=== PATIENT | female | born 1950 | race African-American/Black ===

== ENCOUNTER 2017-08-30 18:20 | Emergency (ER) | payer MEDICARE ==
[2017-08-30] MEDS ORDERED: METHYLPREDNISOLONE INJ 125 MG/2 ML SDV IV ONE (18:32)
[2017-08-30] MEDS ORDERED: EPINEPHRINE INJ/PF 1 MG/1 ML AMPULE SUBCUT PRN (18:32)
[2017-08-30] MEDS ORDERED: FAMOTIDINE INJ/PF 20 MG/2 ML SDV IV ONE (18:33)
[2017-08-30] MEDS ORDERED: DIPHENHYDRAMINE HCL 50 MG/ML VIAL IV ONE (18:33)
--- NOTE | 2017-08-30 18:33 | ER Document Report ---
ED Medical Screen (RME) - General Chief Complaint: Allergic Reaction Stated Complaint: RASH Time Seen by Provider: 08/30/17 18:31 Mode of Arrival: Ambulatory Information source: Patient Notes: 67 yo female not on JASON's ate fish 3 hours ago, 30 minutes ago started itching badly and get throat swelling. Pulse 104. Lungs clear. Angioedema soft palate left side. Will go to Trauma 2. Meds ordered. TRAVEL OUTSIDE OF THE [place] IN LAST 30 DAYS: No - Related Data Allergies/Adverse Reactions: lisinopril [Lisinopril] Allergy (Verified 08/30/17 18:23) Past Medical History - Past Medical History Cardiac Medical History: Reports: Hx Hypertension Past Surgical History: Reports: Hx Hysterectomy - Immunizations Hx Diphtheria, Pertussis, Tetanus Vaccination: Yes Physical Exam - Vital signs Vitals: Temp Pulse Resp BP Pulse Ox 97.4 F 104 H 18 117/93 H 97 08/30/17 18:27 08/30/17 18:27 08/30/17 18:27 08/30/17 18:27 08/30/17 18:27 Course - Vital Signs Vital signs: Temp Pulse Resp BP Pulse Ox 97.4 F 104 H 18 117/93 H 97 08/30/17 18:27 08/30/17 18:27 08/30/17 18:27 08/30/17 18:27 08/30/17 18:27
[2017-08-30] MEDS ORDERED: DIPHENHYDRAMINE HCL 50 MG/ML VIAL ONE (18:34)
[2017-08-30] MEDS ORDERED: EPINEPHRINE INJ/PF 1 MG/1 ML AMPULE ONE (18:35)
[2017-08-30] MEDS ORDERED: METHYLPREDNISOLONE INJ 125 MG/2 ML SDV ONE (18:35)
[2017-08-30] MEDS ORDERED: MAGNESIUM SULFATE/D5W 1 GM/100 ML RTUPB IV ONE ×2 (18:52→19:02)
[2017-08-30] MEDS ORDERED: EPINEPHRINE INJ/PF 1 MG/1 ML AMPULE IM ONE (19:02)
--- NOTE | 2017-08-30 19:06 | ER Document Report ---
ED General - General Chief Complaint: Allergic Reaction Stated Complaint: RASH Time Seen by Provider: 08/30/17 18:31 Mode of Arrival: Ambulatory Information source: Patient Notes: This is a 67-year-old female with a history of hypertension, reflux who presents with swelling around the mouth and throat along with itching. Patient states at 4:30 PM she ate [place]. Patient states that approximately 1 hour later she started having diffuse itching, numbness around the mouth and then her throat felt tight. In triage the patient was given epi subcu, Benadryl IV, Solu-Medrol IV, and Pepcid IV. Medications: Triamterene-hydrochlorothiazide (37.5-25), omeprazole, vitamins Allergies: Lisinopril (cough and shortness of breath) TRAVEL OUTSIDE OF THE [place] IN LAST 30 DAYS: No - HPI Onset: Just prior to arrival Onset/Duration: Sudden Quality of pain: No pain Severity: None Pain Level: Denies Associated symptoms: denies: Chest pain, Fever, Shortness of breath Exacerbated by: Denies Relieved by: Denies Similar symptoms previously: No Recently seen / treated by doctor: No - Related Data Allergies/Adverse Reactions: lisinopril [Lisinopril] Allergy (Verified 08/30/17 18:23) Past Medical History - General Information source: Patient - Social History Smoking Status: Never Smoker Cigarette use (# per day): No Chew tobacco use (# tins/day): No Frequency of alcohol use: None Drug Abuse: None Lives with: Spouse/Significant other Family History: Reviewed & Not Pertinent Patient has suicidal ideation: No Patient has homicidal ideation: No - Past Medical History Cardiac Medical History: Reports: Hx Hypertension Renal/ Medical History: Denies: Hx Peritoneal Dialysis Surgical Hx: Negative Past Surgical History: Reports: Hx Hysterectomy - Immunizations Hx Diphtheria, Pertussis, Tetanus Vaccination: Yes Review of Systems - Review of Systems Constitutional: denies: Chills, Fever EENT: See HPI Cardiovascular: No symptoms reported Respiratory: No symptoms reported Gastrointestinal: No symptoms reported Genitourinary: No symptoms reported Female Genitourinary: No symptoms reported Musculoskeletal: No symptoms reported Skin: No symptoms reported Hematologic/Lymphatic: No symptoms reported Neurological/Psychological: No symptoms reported Physical Exam - Vital signs Vitals: Temp Pulse Resp BP Pulse Ox 97.4 F 104 H 18 117/93 H 97 08/30/17 18:27 08/30/17 18:27 08/30/17 18:27 08/30/17 18:27 08/30/17 18:27 Notes: Physical exam: GENERAL: 67-year-old female, alert and oriented 3 patient states that the Itching has improved but states her throat feels the same. HEAD: Atraumatic, normocephalic. EYES: Pupils equal round and reactive to light, extraocular movements intact, sclera anicteric, conjunctiva are normal. ENT: Nares patent, there is some swelling in the posterior pharynx. Moist mucous membranes. Patient does not have any stridor at this time. There is no swelling to the lips or underneath the tongue. NECK: Normal range of motion, supple without obvious mass. There is no swelling in the submandibular spaces. LUNGS: Breath sounds clear to auscultation bilaterally and equal. No wheezes rales or rhonchi. HEART: Regular rate and rhythm without murmurs, rubs or gallops. ABDOMEN: Soft, normoactive bowel sounds. No tenderness to palpation. No guarding, no rebound. No masses appreciated. EXTREMITIES: Normal range of motion, no pitting or edema. No clubbing or cyanosis. NEUROLOGICAL: Cranial nerves II through XII grossly intact. Normal speech, moving all extremities. PSYCH: Normal mood, normal affect. SKIN: Warm, Dry, normal turgor, no rashes or lesions noted. Course - Re-evaluation Re-evalutation: 08/30/17 19:05 In triage: Patient given epi subcu, Solu-Medrol IV and Benadryl IV In trauma 1: Patient given Pepcid IV, magnesium sulfate 1 g IV, and epinephrine IM. 08/31/17 02:58 Patient symptoms improved significantly. She is comfortable at this time. She was observed several hours in the emergency room. She is remained stable. Will DC home. - Vital Signs Vital signs: Temp Pulse Resp BP Pulse Ox 97.4 F 104 H 15 118/72 94 08/30/17 18:27 08/30/17 18:27 08/31/17 02:00 08/31/17 02:01 08/31/17 02:01 - Laboratory Result Diagrams: 08/30/17 19:22 08/30/17 19:22 Laboratory results interpreted by me: 08/30/17 08/30/17 19:22 19:22 Seg Neutrophils % 36.6 L Lymphocytes % 55.1 H Potassium 3.3 L Est GFR (Non-Af Amer) 59 L Calcium 10.8 H Magnesium 2.4 H - Diagnostic Test Radiology reviewed: Image reviewed, Reports reviewed - Chest x-ray is clear Critical Care Note - Critical Care Note Total time excluding time spent on procedures (mins): 60 Discharge - Discharge Clinical Impression: Acute allergic reaction Condition: Stable Disposition: HOME, SELF-CARE Instructions: Acute Allergic Reaction ([facility]) Additional Instructions: Thank you for choosing [facility] for your care. The examination and treatment you have received in the Emergency Department today has been rendered on an emergency basis only and is not intended to be a substitute for complete medical care. You should contact your doctor as it is important that she/he examine you for any new or remaining problems. If your problem worsens or new symptoms appear and you are unable to arrange prompt follow-up care, return to the Emergency Department. Specific signs to look out for: Worsening shortness of breath, any feelings that she her throat is closing up, any concerns or getting worse per Any other instructions: Rest, drink plenty of fluids. Take the prednisone as prescribed daily. Take the Pepcid and Benadryl as prescribed. Take the EpiPen if you feel your throat is closing up. This is an injection into the thigh. It can go right through your close. If you do use the EpiPen, return to the emergency room right after the injection. Follow-up with an seaweed harvester. Recommendations: Take medicines as prescribed. Take epinephrine autoinjector for any shortness of breath or feelings like her airway is getting closed off work the ability to pass out. He to use the autoinjector, return to the ER at once. Followup with an seaweed harvester for allergy testing: [facility]: Address: [address] [place] [address], [place] [address] Prescriptions: Diphenhydramine HCl [Benadryl 50 mg Capsule] 1 cap PO Q6 PRN #14 capsule PRN Reason: Epinephrine [Epipen 2-Cesar] 0.3 mg IM ONCE PRN #2 ml PRN Reason: Famotidine [Pepcid 20 mg Tablet] 20 mg PO DAILY #12 tablet Prednisone [Deltasone 20 mg Tablet] 3 tab PO DAILY 5 Days tablet Referrals: JOSE CUI MD [Primary Care Provider] - Follow up in 3-5 days
[2017-08-30 19:32] LABS: ABSOLUTE BASOPHILS # (AUTO) 0.1 10^3/uL (0.0-0.2); ABSOLUTE EOSINOPHILS # (AUTO) 0.1 10^3/uL (0.0-0.6); ABSOLUTE LYMPHOCYTES (AUTO) 4.4 10^3/uL (0.5-4.7); ABSOLUTE MONOCYTES (AUTO) 0.5 10^3/uL (0.1-1.4); ABSOLUTE NEUT (AUTO) 2.9 10^3/uL (1.7-8.2); BASOPHILS % (AUTO) 0.9 % (0-2); EOSINOPHILS % (AUTO) 1.2 % (0-6); HEMOGLOBIN 13.3 g/dL (12.0-15.5); LYMPHOCYTES % (AUTO) 55.1 % (13-45); MEAN CORPUSCULAR HEMOGLOBIN 30.2 pg (27.0-33.4); MEAN CORPUSCULAR VOLUME 89 fl (80-97); MONOCYTES % (AUTO) 6.2 % (3-13); PLATELET COUNT 333 10^3/uL (150-450); RED BLOOD COUNT 4.39 10^6/uL (3.72-5.28); RED CELL DISTRIBUTION WIDTH 13.2 % (11.5-14.0); SEGMENTED NEUTROPHILS % (AUTO) 36.6 % (42-78); TOTAL CELLS COUNTED % (AUTO) 100 %
[2017-08-30 19:48] LABS: ALANINE AMINOTRANSFERASE 29 U/L (9-52); ALBUMIN 4.2 g/dL (3.5-5.0); ALKALINE PHOSPHATASE 122 U/L (38-126); ANION GAP 9 (5-19); ASPARTATE AMINO TRANSFERASE 32 U/L (14-36); BILIRUBIN,DIRECT 0.2 mg/dL (0.0-0.4); BILIRUBIN,TOTAL 0.5 mg/dL (0.2-1.3); BLOOD UREA NITROGEN 12 mg/dL (7-20); CALCIUM 10.8 mg/dL (8.4-10.2); CARBON DIOXIDE 28 mmol/L (22-30); CHLORIDE 104 mmol/L (98-107); GLUCOSE 99 mg/dL (75-110); MAGNESIUM 2.4 mg/dL (1.6-2.3); POTASSIUM 3.3 mmol/L (3.6-5.0); SODIUM 141.1 mmol/L (137-145); TOTAL PROTEIN 7.8 g/dL (6.3-8.2)
[2017-08-30] MEDS ORDERED: IPRATROPIUM/ALBUTEROL 0.5-2.5 MG/3 ML AMPUL NEB ONE (20:06)
--- NOTE | 2017-08-30 21:37 | RADIOLOGY REPORT (SQ) ---
EXAM DESCRIPTION: CHEST SINGLE VIEW COMPLETED DATE/TIME: 08/30/2017 9:21 pm REASON FOR STUDY: sob COMPARISON: 07/12/2016 EXAM PARAMETERS: NUMBER OF VIEWS: One view. TECHNIQUE: Single frontal radiographic view of the chest acquired. RADIATION DOSE: NA LIMITATIONS: None. FINDINGS: LUNGS AND PLEURA: No acute opacities, masses or pneumothorax. No pleural effusion. MEDIASTINUM AND HILAR STRUCTURES: Stable. HEART AND VASCULAR STRUCTURES: Heart normal in size. Normal vasculature. BONES: No acute findings. HARDWARE: None in the chest. OTHER: No other significant finding. IMPRESSION: NO ACUTE RADIOGRAPHIC FINDING IN THE CHEST. TECHNICAL DOCUMENTATION: JOB ID: [id number] [place]-[id number] [employer]- All Rights Reserved
[2017-08-30] MEDS ORDERED: POTASSIUM CHLORIDE 20 MEQ/15 ML UDCUP PO ONE (22:17)
[2017-08-31 02:20] VITALS: BP 118/72
== END 2017-08-31 02:30 | disposition home or self-care (01) ==
LOC: ER 18:20
DX: T78.40XA Allergy, unspecified, initial encounter (principal); R21 Rash and other nonspecific skin eruption; I10 Essential (primary) hypertension
CPT/HCPCS: 94640; 99291; 96375; 96365; 36415; 83735; 85025; 80053; 71045; J1200; J0171; J2930; J3475; A9270 ×2; S0028; J7620

== ENCOUNTER 2019-03-13 11:51 | Emergency (ER) | payer MEDICARE ==
[2019-03-13] MEDS ORDERED: IBUPROFEN 800 MG TABLET PO ONE (12:19)
--- NOTE | 2019-03-13 12:23 | ER Document Report ---
ED Medical Screen (RME) - General Chief Complaint: Abdominal Pain Stated Complaint: ABDOMINAL PAIN Time Seen by Provider: 03/13/19 12:10 Primary Care Provider: JOSE CUI MD [Primary Care Provider] - Follow up as needed Mode of Arrival: Ambulatory Information source: Patient Notes: This 69-year-old female presents emergency department with complaints of right hip right flank pain radiating down his right leg. Reports symptoms since February with increasing pain. Patient has been evaluated at urgent care told she had arthritis and prescribed Robaxin. Patient reports symptoms are increasing. Denies fever vomiting diarrhea. Denies pain with void. Reports the pain is increasing so much she has to have help to get in and out of bed. Patient reports that the pain radiates from the back to the front of the lower abdomen. Has some tenderness in the right lower quad. I have greeted and performed a rapid initial assessment of this patient. A comprehensive ED assessment and evaluation of the patient, analysis of test results and completion of the medical decision making process will be conducted by additional ED providers. Dictation of this chart was performed using voice recognition software; therefore, there may be some unintended grammatical errors. TRAVEL OUTSIDE OF THE [place] IN LAST 30 DAYS: No - Related Data Allergies/Adverse Reactions: lisinopril [Lisinopril] Allergy (Verified 03/13/19 11:54) Past Medical History - Past Medical History Cardiac Medical History: Reports: Hx Hypertension Renal/ Medical History: Denies: Hx Peritoneal Dialysis Past Surgical History: Reports: Hx Hysterectomy - Immunizations Hx Diphtheria, Pertussis, Tetanus Vaccination: Yes Physical Exam - Vital signs Vitals: Temp Pulse Resp BP Pulse Ox 97.7 F 86 22 H 143/76 H 94 03/13/19 11:58 03/13/19 11:58 03/13/19 11:58 03/13/19 11:58 03/13/19 11:58 Course - Vital Signs Vital signs: Temp Pulse Resp BP Pulse Ox 97.7 F 86 22 H 143/76 H 94 03/13/19 11:58 03/13/19 11:58 03/13/19 11:58 03/13/19 11:58 03/13/19 11:58 Doctor's Discharge - Discharge Referrals: JOSE CUI MD [Primary Care Provider] - Follow up as needed
[2019-03-13] MEDS ORDERED: MORPHINE SULFATE 10 MG/ML INJ IV ONE (12:40)
[2019-03-13] MEDS ORDERED: ONDANSETRON HCL INJ/PF 4 MG/2 ML SDV IV ONE (12:40)
--- NOTE | 2019-03-13 12:52 | ER Document Report ---
ED General - General Chief Complaint: Abdominal Pain Stated Complaint: ABDOMINAL PAIN Time Seen by Provider: 03/13/19 12:10 Primary Care Provider: JOSE CUI MD [Primary Care Provider] - Follow up as needed Mode of Arrival: Ambulatory TRAVEL OUTSIDE OF THE [place] IN LAST 30 DAYS: No - HPI Notes: Patient is a 69-year-old female who presents the emergency department for evaluation of back pain that radiates around into her abdomen and legs. She s rah is been present since the middle of February. She went to an urgent care. They told her it was "arthritis." She was sent home on a 5-day prednisone burst as well as some Robaxin. She states she has had absolutely no relief. She states she has a numbing and burning pain down her anterior legs intermittently. She denies any bowel or bladder incontinence, no saddle anesthesia. No focal weakness. Her pain is worsened by movement. She does have some increased stools and diarrhea. She has had this problem in the past, and believes it was worsened by Augmentin for H. pylori infection. She states it continues to be a problem, however, and she is concerned that there might be something intra- abdominal going on. She has no urinary symptoms. - Related Data Allergies/Adverse Reactions: lisinopril [Lisinopril] Allergy (Verified 03/13/19 11:54) Past Medical History - General Information source: Patient - Social History Smoking Status: Former Smoker Frequency of alcohol use: None Drug Abuse: None Family History: DM, Hypertension, Malignancy - Multiple myeloma in mother Patient has suicidal ideation: No Patient has homicidal ideation: No - Past Medical History Cardiac Medical History: Reports: Hx Hypertension Renal/ Medical History: Denies: Hx Peritoneal Dialysis Past Surgical History: Reports: Hx Hysterectomy - Immunizations Hx Diphtheria, Pertussis, Tetanus Vaccination: Yes Review of Systems - Review of Systems Constitutional: No symptoms reported EENT: No symptoms reported Cardiovascular: No symptoms reported Respiratory: No symptoms reported Gastrointestinal: See HPI Genitourinary: No symptoms reported Female Genitourinary: No symptoms reported Musculoskeletal: See HPI Skin: No symptoms reported Neurological/Psychological: No symptoms reported Physical Exam - Vital signs Vitals: Temp Pulse Resp BP Pulse Ox 97.7 F 86 22 H 143/76 H 94 03/13/19 11:58 03/13/19 11:58 03/13/19 11:58 03/13/19 11:58 03/13/19 11:58 - Notes Notes: Vital signs reviewed, please refer to chart. Head is normocephalic, atraumatic. Pupils equal round, reactive to light. Neck is supple without meningismus. Heart is regular rate and rhythm. Lungs are clear to auscultation bilaterally. Abdomen is soft, mildly tender in the right lower quadrant without rebound or guarding, normoactive bowel sounds throughout. She is tender to palpation over the inguinal region and hip flexors bilaterally. Examination of the spine yields no midline tenderness or step-off. She has paraspinal musculature tenderness noted from L3-L5, into the SI joints bilaterally, left greater than right. Positive straight leg raise on the left, negative on the right. Patellar reflexes are 2+ bilaterally, Achilles reflexes are 1+ bilaterally. Strength is plus 5 out of 5 bilateral lower extremities. Sensation is intact. Extremities without cyanosis, clubbing. Posterior calves are nontender. Peripheral pulses are equal. Skin is warm and dry. Patient is awake, alert, neurological exam is nonfocal. Course - Re-evaluation Re-evalutation: 03/13/19 12:51 Patient presents emergency department for evaluation. Because of her abdominal tenderness, laboratory investigations and imaging of the abdomen were ordered. My strong suspicion, however, is that this patient has a lumbar radiculopathy of some sort. Her pain is exacerbated by movement. She has tenderness to palpation. She has radiation of pain into the legs with associated paresthesias. I will send her home with a longer steroid taper, as well as some stronger pain medication. The importance of following up with her primary care provider was stressed. I explained to her that she would need further evaluation if her symptoms persist, including but not limited to physical therapy and an MRI. She voiced understanding to this. 03/13/19 14:03 . Laboratory investigations reviewed. Awaiting chemistries, but otherwise unremarkable. Patient notified of finding on the liver, need for follow-up. She believes she had imaging done several years ago which was similar, but she will follow-up with her primary care physician regarding this. He does have facet arthropathy noted on CT scan. My strong suspicion again is that this is musculoskeletal. Pending normal metabolic panel, I will then send her home with steroids and a small amount of Percocet. She is to return to the emergency department with worsening or new concerning symptoms of any sort. - Vital Signs Vital signs: Temp Pulse Resp BP Pulse Ox 97.7 F 86 22 H 143/76 H 94 03/13/19 11:58 03/13/19 11:58 03/13/19 11:58 03/13/19 11:58 03/13/19 11:58 - Laboratory Result Diagrams: 03/13/19 13:02 03/13/19 13:02 Laboratory results interpreted by me: 03/13/19 03/13/19 03/13/19 13:02 13:02 13:02 Seg Neutrophils % 41.9 L Lymphocytes % 48.9 H Calcium 10.3 H AST 73 H Ur Leukocyte Esterase MODERATE H - Diagnostic Test Radiology reviewed: Reports reviewed Radiology results interpreted by me: 03/13/19 14:05 Abdomen/Pelvis CT 03/13/19 12:22 IMPRESSION: 1. No evidence of hydronephrosis or nephrolithiasis. Multiple calcific densities within the pelvis favored to represent pelvic phleboliths but distal stone is not entirely excluded. 2. 20 mm inferior right hepatic lobe hypodense lesion, indeterminate on this noncontrast exam. Multiphase CT or MRI could be considered for further characterization. Discharge - Discharge Clinical Impression: Lumbar radicular pain Condition: Stable Disposition: HOME, SELF-CARE Instructions: Low Back Pain ([facility]) Additional Instructions: Please take medications as prescribed. Take all of the medrol dose pack until gone. Percocet as needed for severe pain. Follow up with your doctor next week. You should have further testing to evaluation the small lesion found on your liver. You may also require physical therapy and/or MRI for your back pain. Return to the ER with worsening or new concerning symptoms. Prescriptions: Oxycodone HCl/Acetaminophen [Percocet 5-325 mg Tablet] 1 tab PO Q6HP PRN #10 tablet PRN Reason: Methylprednisolone [Medrol Dosepack (4 mg/Tab) 21 Tab/Dosepak] 4 mg PO ASDIR PRN #21 tab.ds.pk PRN Reason: Referrals: JOSE CUI MD [Primary Care Provider] - Follow up as needed
--- NOTE | 2019-03-13 13:04 | RADIOLOGY REPORT (SQ) ---
EXAM DESCRIPTION: CT ABD/PELVIS NO ORAL OR IV COMPLETED DATE/TIME: 03/13/2019 12:44 pm REASON FOR STUDY: flank hip pain COMPARISON: None. TECHNIQUE: CT scan of the abdomen and pelvis performed without intravenous or oral contrast. Images reviewed with lung, soft tissue, and bone windows. Reconstructed coronal and sagittal MPR images revi ewed. All images stored on PACS. All CT scanners at this facility use dose modulation, iterative reconstruction, and/or weight based d osing when appropriate to reduce radiation dose to as low as reasonably achievable (ALARA). [facility]: Dose Right [facility]: CareDose [facility]: Dose Right [facility]: Teradose 4D [facility]: Smart DataContact RADIATION DOSE: mGy. LIMITATIONS: None. FINDINGS: LOWER CHEST: No significant findings. No nodules or infiltrates. NON-CONTRASTED LIVER, SPLEEN, ADRENALS: Evaluation limited by lack of IV contrast. There is a ill-de fined 2 cm area of hypodensity within the inferior right hepatic lobe (series 3, image 33), indetermi fabian. No other identified significant masses. PANCREAS: No masses. No peripancreatic inflammatory changes. GALLBLADDER: No identified stones by CT criteria. No inflammatory changes to suggest cholecystitis. RIGHT KIDNEY AND URETER: No suspicious masses. 20 mm cyst. Assessment limited by lack of IV contras t. No significant calcifications. No hydronephrosis or hydroureter. LEFT KIDNEY AND URETER: No suspicious masses. Assessment limited by lack of IV contrast. 29 mm lower pole cyst. No significant calcifications. No hydronephrosis or hydroureter. AORTA AND RETROPERITONEUM: No aneurysm. No retroperitoneal masses or adenopathy. BOWEL AND PERITONEAL CAVITY: No obvious masses or inflammatory changes. No free fluid. APPENDIX: Normal. PELVIS, BLADDER, AND ABDOMINAL WALL:Scattered bilateral pelvic phleboliths. Distal ureteral stone is not entirely excluded. Decompressed urinary bladder. BONES: No acute bony abnormality. No suspicious osseous lesions. Lower lumbar facet arthropathy. OTHER: No other significant finding. IMPRESSION: 1. No evidence of hydronephrosis or nephrolithiasis. Multiple calcific densities withi n the pelvis favored to represent pelvic phleboliths but distal stone is not entirely excluded. 2. 20 mm inferior right hepatic lobe hypodense lesion, indeterminate on this noncontrast exam. Mult iphase CT or MRI could be considered for further characterization. COMMENT: Quality ID # [id number]: Final reports with documentation of one or more dose reduction techniques (e.g., Automated exposure control, adjustment of the mA and/or kV according to patient size, use of iterative reconstruction technique) TECHNICAL DOCUMENTATION: JOB ID: [id number] [employer]- All Rights Reserved Reading location - IP/workstation name: [email or web address]
[2019-03-13 13:35] LABS: APPEARANCE,URINE SLIGHTLY-CLOUDY; BILIRUBIN,URINE NEGATIVE (NEGATIVE); COLOR,URINE YELLOW; GLUCOSE, URINE NEGATIVE (NEGATIVE); KETONES,URINE NEGATIVE (NEGATIVE); LEUKOCYTE ESTERASE,URINE MODERATE (NEGATIVE); NITRITE,URINE NEGATIVE (NEGATIVE); PROTEIN,URINE NEGATIVE (NEGATIVE); URINE SPECIFIC GRAVITY 1.024; UROBILINOGEN,URINE NEGATIVE mg/dL (<2.0)
[2019-03-13 13:37] LABS: ABSOLUTE EOSINOPHILS # (AUTO) 0.1 10^3/uL (0.0-0.6); ABSOLUTE LYMPHOCYTES (AUTO) 2.4 10^3/uL (0.5-4.7); ABSOLUTE MONOCYTES (AUTO) 0.3 10^3/uL (0.1-1.4); ABSOLUTE NEUT (AUTO) 2.1 10^3/uL (1.7-8.2); BASOPHILS % (AUTO) 0.9 % (0-2); EOSINOPHILS % (AUTO) 2.3 % (0-6); HEMATOCRIT 37.5 % (36.0-47.0); HEMOGLOBIN 12.7 g/dL (12.0-15.5); LYMPHOCYTES % (AUTO) 48.9 % (13-45); MEAN CORPUSCULAR HEMOGLOBIN 29.9 pg (27.0-33.4); MEAN CORPUSCULAR HGB CONC 33.7 g/dL (32.0-36.0); MEAN CORPUSCULAR VOLUME 89 fl (80-97); PLATELET COUNT 295 10^3/uL (150-450); RED BLOOD COUNT 4.23 10^6/uL (3.72-5.28); RED CELL DISTRIBUTION WIDTH 13.5 % (11.5-14.0); SEGMENTED NEUTROPHILS % (AUTO) 41.9 % (42-78); TOTAL CELLS COUNTED % (AUTO) 100 %; WHITE BLOOD COUNT 4.9 10^3/uL (4.0-10.5)
[2019-03-13 14:13] LABS: ALBUMIN 4.1 g/dL (3.5-5.0); ANION GAP 6 (5-19); BILIRUBIN,DIRECT 0.4 mg/dL (0.0-0.4); BILIRUBIN,TOTAL 0.7 mg/dL (0.2-1.3); CALCIUM 10.3 mg/dL (8.4-10.2); CARBON DIOXIDE 29 mmol/L (22-30); CHLORIDE 104 mmol/L (98-107); GLUCOSE 86 mg/dL (75-110); TOTAL PROTEIN 8.2 g/dL (6.3-8.2)
[2019-03-13 14:17] LABS: ALKALINE PHOSPHATASE 118 U/L (38-126); ASPARTATE AMINO TRANSFERASE 73 U/L (14-36); BLOOD UREA NITROGEN 16 mg/dL (7-20); POTASSIUM 3.8 mmol/L (3.6-5.0)
[2019-03-13 14:56] VITALS: BP 134/70
== END 2019-03-13 14:56 | disposition home or self-care (01) ==
LOC: ER 11:51
DX: M54.9 Dorsalgia, unspecified (principal); M54.16 Radiculopathy, lumbar region; R10.9 Unspecified abdominal pain; R19.7 Diarrhea, unspecified; I10 Essential (primary) hypertension; Z90.710 Acquired absence of both cervix and uterus
CPT/HCPCS: 99284; 96374; 96375; 36415; 85025; 80053; 81001; 74176; A9270; J2270; J2405

== ENCOUNTER 2019-03-29 03:15 | Emergency (ER) | payer MEDICARE ==
[2019-03-29] MEDS ORDERED: DIPHENHYDRAMINE HCL 25 MG CAPSULE PO ONE (03:58)
[2019-03-29] MEDS ORDERED: FAMOTIDINE 20 MG TABLET PO ONE (03:59)
[2019-03-29] MEDS ORDERED: PREDNISONE 20 MG TABLET PO ONE (03:59)
--- NOTE | 2019-03-29 06:18 | ER Document Report ---
ED Allergic Reaction - General Chief Complaint: Allergic Reaction Stated Complaint: POSS ALLERGIC REACTION Time Seen by Provider: 03/29/19 05:59 Primary Care Provider: JOSE CUI MD [Primary Care Provider] - Follow up as needed Notes: Patient is a 69-year-old female that comes emergency department for chief complaint of breaking out to hives over her arms, chest, back. She denies difficulty swallowing or breathing, shortness of breath, swelling of the face. She states she ate shrimp and fish tonight. She states that she broke out in a similar fashion with seafood in the past. She denies any other complaints. TRAVEL OUTSIDE OF THE [place] IN LAST 30 DAYS: No - Related Data Allergies/Adverse Reactions: lisinopril [Lisinopril] Allergy (Verified 03/13/19 11:54) Past Medical History - General Information source: Patient - Social History Smoking Status: Never Smoker Frequency of alcohol use: None Drug Abuse: None Lives with: Family Family History: DM, Hypertension, Malignancy - Multiple myeloma in mother - Past Medical History Cardiac Medical History: Reports: Hx Hypertension Renal/ Medical History: Denies: Hx Peritoneal Dialysis Past Surgical History: Reports: Hx Hysterectomy - Immunizations Hx Diphtheria, Pertussis, Tetanus Vaccination: Yes Review of Systems - Review of Systems Constitutional: No symptoms reported EENT: No symptoms reported Cardiovascular: No symptoms reported Respiratory: No symptoms reported Gastrointestinal: No symptoms reported Genitourinary: No symptoms reported Female Genitourinary: No symptoms reported Musculoskeletal: No symptoms reported Skin: See HPI Hematologic/Lymphatic: No symptoms reported Neurological/Psychological: No symptoms reported Physical Exam - Vital signs Vitals: Temp Pulse Resp BP Pulse Ox 97.6 F 116 H 20 166/79 H 96 03/29/19 03:22 03/29/19 03:22 03/29/19 03:22 03/29/19 03:22 03/29/19 03:22 - Notes Notes: GENERAL: Alert, interacts well. No acute distress. HEAD: Normocephalic, atraumatic. EYES: Pupils equal, round, and reactive to light. Extraocular movements intact. ENT: Oral mucosa moist, tongue midline. Oropharynx unremarkable. Airway patent. Nares patent, no nasal septal hematoma NECK: Full range of motion. Supple. Trachea midline. LUNGS: Clear to auscultation bilaterally, no wheezes, rales, or rhonchi. No respiratory distress. HEART: Regular rate and rhythm. No murmur ABDOMEN: Soft, non-tender. Non-distended. EXTREMITIES: Moves all 4 extremities spontaneously. No edema, normal radial and dorsalis pedis pulses bilaterally. No cyanosis. BACK: no cervical, thoracic, lumbar midline tenderness. No saddle anesthesia, normal distal neurovascular exam. Moves all extremities in full range of motion. NEUROLOGICAL: Alert and oriented x3. Normal speech. Cranial nerves II through XII grossly intact. PSYCH: Normal affect, normal mood. SKIN: Warm, dry, normal turgor. No rashes or lesions noted. Course - Re-evaluation Re-evalutation: Triage nurse had informed me of the patient and I did give Benadryl, Pepcid, prednisone initially. When I saw the patient she had complete resolution of the hives. Oropharyngeal exam unremarkable, lungs clear, no evidence of anaphylaxis either. Patient has had this in the past. I discussed with patient, patient requests to not be placed on prednisone because of a lot of trouble with GERD, she will be placed on high-dose antihistamines instead. Discussed follow-up, discussed return precautions in detail. Patient states satisfaction agreement with plan. - Vital Signs Vital signs: Temp Pulse Resp BP Pulse Ox 98.4 F 63 18 134/88 H 98 03/29/19 07:52 03/29/19 07:52 03/29/19 07:52 03/29/19 07:52 03/29/19 07:52 Discharge - Discharge Clinical Impression: Urticaria Condition: Stable Disposition: HOME, SELF-CARE Additional Instructions: The exact cause of your hives is uncertain but the seafood is very suspicious for this. I recommend that you avoid seafood and especially shellfish. Take the Claritin as prescribed 3 times a day for 1 week, take the famotidine as prescribed twice a day for 1 week. Follow-up with primary care. Return if you worsen including return of the rash, swelling of the face, lips, tongue, throat, or any other concerning symptoms. Prescriptions: Loratadine [Claritin 10 mg Tablet] 10 mg PO TID 7 Days #21 tablet Famotidine [Pepcid 20 mg Tablet] 20 mg PO BID #14 tablet Referrals: JOSE CUI MD [Primary Care Provider] - Follow up as needed
[2019-03-29 07:53] VITALS: BP 134/88
== END 2019-03-29 07:59 | disposition home or self-care (01) ==
LOC: ER 03:15
DX: L50.9 Urticaria, unspecified (principal); T78.40XA Allergy, unspecified, initial encounter; I10 Essential (primary) hypertension
CPT/HCPCS: 99283; A9270 ×3; J7512

== ENCOUNTER 2019-09-11 10:59 | Day surgery (SDC) | payer MEDICARE ==
[~2019-09-11 10:59] MED LIST: CHONDR SU A NA/HYALUR INTRAOC KIT (SURGICARE) ONE; DORZOLAMIDE HCL 2%/TIMOLOL MALEAT 0.5% OPH SOLN 10 ML OD PRN; EPINEPHRINE INJ/PF 1 MG/1 ML AMPULE ONE; KETOROLAC TROMETHAMINE 0.45% 4 DROP/0.4 ML DROPERETTE OD PRN; LIDOCAINE 1%/PHENYLEPHRINE 1.5% 1 ML VIAL ONE
[2019-09-11] MEDS ORDERED: ONDANSETRON HCL INJ/PF 4 MG/2 ML SDV ONE (11:04)
[2019-09-11] MEDS ORDERED: FENTANYL CITRATE INJ/PF 100 MCG/2 ML AMPUL ONE (11:04)
[2019-09-11] MEDS ORDERED: MIDAZOLAM 2 MG/2 ML INJ ONE (11:04)
[2019-09-11] MEDS: TROPICAMIDE 1% OPH SOLN 15 ML OD PRN ×3 (11:24→11:44)
[2019-09-11] MEDS: CYCLOPENTOLATE 0.2%/PHENYLEPHRINE 1% OPH SOLN 2 ML OD PRN ×3 (11:24→11:44)
[2019-09-11] MEDS: BESIFLOXACIN HCL 0.6% OPH SUSP 5 ML BOTTLE OD PRN ×3 (11:24→12:22)
[2019-09-11] MEDS: TETRACAINE HCL 0.5% OPH SOLN 4 ML OD PRN ×3 (11:25→12:04)
--- NOTE | 2019-09-11 15:28 | Operative Report ---
Operative Report-[facility] Operative Report: DATE OF SURGERY: September PREOPERATIVE DIAGNOSIS: NUCLEAR CATARACT, RIGHT EYE. POSTOPERATIVE DIAGNOSIS: NUCLEAR CATARACT, RIGHT EYE. PROCEDURE PERFORMED: PHACOEMULSIFICATION WITH POSTERIOR CHAMBER INTRAOCULAR LENS IMPLANT, RIGHT EYE. SURGEON: Trip Hu DO MEDICATIONS AND ANESTHESIA: Versed: IV Versed Tetracaine drops: 1 to 2 drops given as needed COMPLICATION: None INDICATIONS FOR SURGERY: Medical necessity: Best corrected visual acuity worse than 20/40 secondary to cataracts with impairment of ability to carry out needs or desired activities, blurred vision, visual distortion, reduced contrast sensitivity and/or glare with association functional impairment and supporting documentation/testing, and cataracts causing symptomatic impairment of visual functions not corrected with tolerable changes in glasses or contact lenses interfering with activities of daily life. PROCEDURE: Consent: The risks, benefits and alternatives of this procedures was discussed with the patient. The patient read and signed the consent forms, was identified and was seated in the exam chair. IOL: MX 60 IOL Diopters: 20.5 Phacoemulsification with posterior chamber intraocular lens implant: The face was prepped with 5% povidone iodine solution, and a few drops of 5% povidone iodine solution was instilled into the inferior fornix. A non-fenestrated drape was placed over the eye and the lids were parted with the speculum. A paracentesis was made with a 15 degree blade, and 1% lidocaine MPF followed by viscoelastic was injected into the anterior chamber. A 2.4 mm metal micro- keratome was used to create a temporal clear corneal incision. A circular anterior capsulorrhexis was created, followed by hydro-dissection and hydro- delineation. The phacoemulsification hand piece was inserted and the nucleus was removed with the Phaco chop technique. The irrigation-aspiration hand piece was used to remove the residual cortex, and vacuum the posterior capsule. The capsular bag was inflated and viscoelastic and the above-mentioned IOL was injected into the eye with care to insert both leaning and trailing haptics in the capsular bag. The irrigation/aspiration hand piece was reinserted to remove residual viscoelastic from the capsular bag and anterior chamber. The corneal incision was hydrated, and anterior chamber was inflated with sterile BSS via the paracentesis site, and found to be watertight. Postop medication: 1 drop of prednisolone into operative by followed by 1 drop of Cosopt into operative eye followed by 1 drop of Besivance intraoperative by other:
== END 2019-09-11 13:05 | disposition home or self-care (01) ==
LOC: SC 10:59
PROVIDERS: ATTEND Ophthalmology
DX: H25.11 Age-related nuclear cataract, right eye (principal); Z79.899 Other long term (current) drug therapy; Z87.891 Personal history of nicotine dependence; Z88.8 Allergy status to other drugs, medicaments and biological substances; I10 Essential (primary) hypertension
CPT/HCPCS: 66984; V2632; J2250; J3490 ×2; A9270; J0171; J3010; J2405; J2370; 142

== ENCOUNTER 2019-09-25 06:29 | Day surgery (SDC) | payer MEDICARE ==
[~2019-09-25 06:29] MED LIST changes: -CHONDR SU A NA/HYALUR INTRAOC KIT (SURGICARE) ONE; -DORZOLAMIDE HCL 2%/TIMOLOL MALEAT 0.5% OPH SOLN 10 ML OD PRN; -EPINEPHRINE INJ/PF 1 MG/1 ML AMPULE ONE; -KETOROLAC TROMETHAMINE 0.45% 4 DROP/0.4 ML DROPERETTE OD PRN; +KETOROLAC TROMETHAMINE 0.45% 4 DROP/0.4 ML DROPERETTE OS PRN; -LIDOCAINE 1%/PHENYLEPHRINE 1.5% 1 ML VIAL ONE
[2019-09-25] MEDS: CYCLOPENTOLATE 0.2%/PHENYLEPHRINE 1% OPH SOLN 2 ML OS PRN ×3 (06:54→07:17)
[2019-09-25] MEDS: TETRACAINE HCL 0.5% OPH SOLN 4 ML OS PRN ×3 (06:54→07:30)
[2019-09-25] MEDS: TROPICAMIDE 1% OPH SOLN 15 ML OS PRN ×3 (06:54→07:18)
[2019-09-25] MEDS: BESIFLOXACIN HCL 0.6% OPH SUSP 5 ML BOTTLE OS PRN ×4 (06:54→07:47)
[2019-09-25] MEDS ORDERED: FENTANYL CITRATE INJ/PF 100 MCG/2 ML AMPUL ONE (07:06)
[2019-09-25] MEDS ORDERED: ONDANSETRON HCL INJ/PF 4 MG/2 ML SDV ONE (07:06)
[2019-09-25] MEDS ORDERED: MIDAZOLAM 2 MG/2 ML INJ ONE (07:06)
[2019-09-25] MEDS: LIDOCAINE 1%/PHENYLEPHRINE 1.5% 1 ML VIAL ONE ×2 (07:35→07:38)
[2019-09-25] MEDS: CHONDR SU A NA/HYALUR INTRAOC KIT (SURGICARE) ONE ×2 (07:36→07:38)
[2019-09-25] MEDS: EPINEPHRINE INJ/PF 1 MG/1 ML AMPULE ONE ×2 (07:36→07:38)
[2019-09-25] MEDS: DORZOLAMIDE HCL 2%/TIMOLOL MALEAT 0.5% OPH SOLN 10 ML OS PRN ×2 (07:47)
--- NOTE | 2019-09-25 14:13 | Operative Report ---
Operative Report-[facility] Operative Report: DATE OF SURGERY: September 25, 2019 PREOPERATIVE DIAGNOSIS: NUCLEAR CATARACT, LEFT EYE. POSTOPERATIVE DIAGNOSIS: NUCLEAR CATARACT, LEFT EYE. PROCEDURE PERFORMED: PHACOEMULSIFICATION WITH POSTERIOR CHAMBER INTRAOCULAR LENS IMPLANT, LEFT EYE. SURGEON: Trip Hu DO MEDICATIONS AND ANESTHESIA: Versed: IV Versed Tetracaine drops: 1 to 2 drops given as needed COMPLICATION: None INDICATIONS FOR SURGERY: Medical necessity: Best corrected visual acuity worse than 20/40 secondary to cataracts with impairment of ability to carry out needs or desired activities, blurred vision, visual distortion, reduced contrast sensitivity and/or glare with association functional impairment and supporting documentation/testing, and cataracts causing symptomatic impairment of visual functions not corrected with tolerable changes in glasses or contact lenses interfering with activities of daily life. PROCEDURE: Consent: The risks, benefits and alternatives of this procedures was discussed with the patient. The patient read and signed the consent forms, was identified and was seated in the exam chair. IOL: MX 60 E 19.0 IOL Diopters: Phacoemulsification with posterior chamber intraocular lens implant: The face was prepped with 5% povidone iodine solution, and a few drops of 5% povidone iodine solution was instilled into the inferior fornix. A non-fenestrated drape was placed over the eye and the lids were parted with the speculum. A paracentesis was made with a 15 degree blade, and 1% lidocaine MPF followed by viscoelastic was injected into the anterior chamber. A 2.4 mm metal micro- keratome was used to create a temporal clear corneal incision. A circular anterior capsulorrhexis was created, followed by hydro-dissection and hydro- delineation. The phacoemulsification hand piece was inserted and the nucleus was removed with the Phaco chop technique. The irrigation-aspiration hand piece was used to remove the residual cortex, and vacuum the posterior capsule. The capsular bag was inflated and viscoelastic and the above-mentioned IOL was injected into the eye with care to insert both leaning and trailing haptics in the capsular bag. The irrigation/aspiration hand piece was reinserted to remove residual viscoelastic from the capsular bag and anterior chamber. The corneal incision was hydrated, and anterior chamber was inflated with sterile BSS via the paracentesis site, and found to be watertight. Postop medication:1 drop of prednisolone into operative by followed by 1 drop of Cosopt into operative eye followed by 1 drop of Besivance intraoperative by Other:
== END 2019-09-25 08:23 | disposition home or self-care (01) ==
LOC: SC 06:29
PROVIDERS: ATTEND Ophthalmology
DX: H25.12 Age-related nuclear cataract, left eye (principal); Z98.41 Cataract extraction status, right eye; Z79.899 Other long term (current) drug therapy; Z88.8 Allergy status to other drugs, medicaments and biological substances; I10 Essential (primary) hypertension
CPT/HCPCS: 66984; 00142; V2632; J2250; J3490 ×2; A9270; J0171; J3010; J2405; J2370; 142